=== PATIENT | female | born 1955 | race Caucasian/White ===

== ENCOUNTER 2018-05-12 10:34 | Day surgery (SDC) | payer OTHER ==
[~2018-05-12] VITALS: Ht 142.2 cm; Wt 68.0 kg
--- NOTE | 2018-05-12 11:00 | NUR ---
PT ADMITTED TO [facility]. AGREES WITH PLANNED PROCEDURE. TOLERATED BOWEL PREP. STATES LAST BM CLEAR.
--- NOTE | 2018-05-12 11:12 | NUR ---
05/12/18 1112 Elijah Gaston PATIENT DETERMINED TO BE ASA APPROPRIATE FOR PROPOFOL SEDATION PRIOR TO START OF PROCEDURE BY . 3-LEAD EKG REVIEWED WITH PHYSICIAN PRIOR TO START OF PROCEDURE.PATIENT CONFIRMS NPO STATUS AND AGREES WITH SCHEDULED PROCEDURE.History, Chart, Medications and Allergies reviewed before start of procedure.MONITOR INTACT WITH CONTINUOUS PULSE OXIMETRY AND INTERMITTENT BP.O2 VIA N/C INTACT THROUGHOUT SEDATION/PROCEDURE.
--- NOTE | 2018-05-12 12:16 | NUR ---
"DAY SURGERY RN | DISCHARGE Patient VSS, A/O. Denies nausea and pain. Tolerating PO fluids. Discharge instructions given, family at bedside to hear D/C instructions. Questions answered. Patient discharged via wheelchair to private vehicle, with ride home. No issues in stepdown."
== END 2018-05-12 23:15 | disposition home or self-care (01) ==
LOC: ORSCMMR 10:34 → ORD 11:30 → ORSCMMR 23:15
PROVIDERS: Internal Medicine Gastroenterology
PROC: 0DJD8ZZ Inspection of Lower Intestinal Tract, Via Natural or Artificial Opening Endoscopic (ICD-10-PCS; principal; 2018-05-12 11:30)
DX: Z12.11 Encounter for screening for malignant neoplasm of colon (principal); K57.30 Diverticulosis of large intestine without perforation or abscess without bleeding; K64.8 Other hemorrhoids; I10 Essential (primary) hypertension
CPT/HCPCS: J7120

== ENCOUNTER 2022-08-20 08:00 | Day surgery (SDC) | payer OTHER ==
[~2022-08-20] VITALS: Ht 139.7 cm; Wt 66.1 kg
--- NOTE | 2022-08-20 08:49 | NUR ---
08/20/22 0849 Mindy Longo PT IS A YAZIDISM AND DECLINES ALL BLOOD PRODUCTS. BLOOD REFUSAL FORM SIGNED AND PLACED IN CHART.
[2022-08-20 11:17] VITALS: BP 134/70
--- NOTE | 2022-08-20 12:39 | NUR ---
08/20/22 1239 MI PAEZ, STUDENT NURSE ASSISTING WITH CARE. PATIENT STATED NO NAUSEA OR PAIN PRIOR TO DISCHARGE.
== END 2022-08-20 12:30 | disposition home or self-care (01) ==
LOC: ORSCSDS 08:00
PROVIDERS: Orthopaedic Surgery
PROC: 0JBJ0ZX Excision of Right Hand Subcutaneous Tissue and Fascia, Open Approach, Diagnostic (ICD-10-PCS; principal; 2022-08-20 09:30)
DX: D48.1 Neoplasm of uncertain behavior of connective and other soft tissue (principal)
CPT/HCPCS: 88305; J0690; J1100; J2250; J2405; J2704; J2795; J3010; J7120